=== PATIENT | female | born 1935 | race Caucasian/White ===

== ENCOUNTER 2020-06-20 17:53 | Inpatient (IN) | payer OTHER ==
[~2020-06-20] VITALS: Ht 162.6 cm; Wt 86.7 kg
--- NOTE | 2020-06-20 18:08 | NUR ---
O2 SAT 79-80%RA. O2 APPLIED. 4LNC; SAT INCREASED TO 94%. PT WAS GIVEN NTG 0.4MG SL X2 PER EMS; SEMI-DISSOLVED WHITE TABLET NOTED ON PT'S TONGUE. PT AWAKE, ALERT, ORIENTED TO NAME ONLY. RESP EVEN & UNLABORED, SPEECH GARBLED, SKIN WNL.
--- NOTE | 2020-06-20 19:04 | NUR ---
PT'S DAUGHTER AND GRANDDAUGHTER AT ED. PT'S MED HX AND ALLERGY STATUS CONFIRMED. PER DAUGHTER: NO ALLERGIES. [place] DOCUMENT LISTS NKDA AND ALLERGIES SOME LISTED MEDS. GRANDDAUGHTER ([employer] EMPL[employer]EE): YOLANDA PARRA ( 03/11/88) CELL [phone]. DAUGHTER: YONAS PARRA ( 05/12/65) CELL [phone]
[2020-06-20] MEDS ORDERED: DOXYCYCLINE 100MG TABLET PO ONE (19:30)
[2020-06-20] MEDS ORDERED: CEFTRIAXONE PMX 1GM/50ML 50 ML IVPB ONE (19:30)
[2020-06-20] MEDS ORDERED: DEXAMETHASONE 4 MG/ML, 1ML IVPush ONE (19:30)
[2020-06-20] MEDS ORDERED: DEXAMETHASONE 4 MG/ML, 1ML ONE (19:35)
[2020-06-20] MEDS ORDERED: CEFTRIAXONE PMX 1GM/50ML 50 ML ONE (19:35)
[2020-06-20] MEDS ORDERED: DOXYCYCLINE 100MG TABLET ONE (19:35)
[2020-06-20 19:46] LABS: ALBUMIN 2.1 g/dL (3.4-5.0); ANION GAP 5 mmol/L (5-15); CALCIUM 7.5 mg/dL (8.5-10.1); CHLORIDE 113 mmol/L (98-107)
[2020-06-20 19:53] LABS: ALANINE AMINOTRANSFERASE 18 U/L (12-78); ALKALINE PHOSPHATASE 83 U/L (45-117); BILIRUBIN,TOTAL 0.6 mg/dL (0.2-1.0); CREATININE 1.48 mg/dL (0.55-1.02); TOTAL PROTEIN 5.5 g/dL (6.4-8.2); TROPONIN I 0.826 ng/mL (0.000-0.045)
[2020-06-20] MEDS ORDERED: ALBUTEROL/IPRATROPIUM 2.5MG/0.5MG, 3 ML NPPB ONE (20:00)
--- NOTE | 2020-06-20 20:03 | NUR ---
PT REFUSING TO TAKE DOXYCYCLINE TAB; REPEATEDLY SPIT TAB OUT. WILL NOTIFY ERP. DECADRON GIVEN PER EMAR. ROCEPHIN ARGELIA, INFUSING AT 100ML/HR VIA PUMP; IV SITE PATENT. PT DROWSY. MONITORING CONTINUING. SIDE RAILS UP X2, CALL LIGHT W/IN REACH, GRANDDAUGHTER AT BS.
--- NOTE | 2020-06-20 20:05 | NUR ---
BREANN HELD FOR D CX DRAW.
--- NOTE | 2020-06-20 20:25 | NUR ---
ERNESTINE GASPAR DRAWN
[2020-06-20] MEDS ORDERED: ALBUTEROL/IPRATROPIUM 2.5MG/0.5MG, 3 ML ONE (20:33)
[2020-06-20 20:36] LABS: BASOPHILS # (AUTO) 0.01 x10^3/uL (0-0.1); BASOPHILS % (AUTO) 0 % (0-1); EOSINOPHILS # (AUTO) 0.01 x10^3/uL (0-0.4); EOSINOPHILS % (AUTO) 0 % (1-7); LYMPHOCYTES % (AUTO) 15 % (22-44); MD NO; MEAN CORPUSCULAR HEMOGLOBIN 30.2 pg (27.0-34.8); MEAN CORPUSCULAR HGB CONC 33.5 g/dL (32.4-35.8); MEAN CORPUSCULAR VOLUME 90.1 fL (80-100); MEAN PLATELET VOLUME 8.9 fL (7.4-10.4); MONOCYTES # (AUTO) 0.35 x10^3/uL (0.2-0.8); MONOCYTES % (AUTO) 10 % (2-9); NEUTROPHILS # (AUTO) 2.54 x10^3/uL (1.8-6.8); NEUTROPHILS % (AUTO) 74 % (42-75); PLATELET COUNT 213 x10^3/uL (130-400); RED BLOOD COUNT 3.23 x10^6/uL (3.82-5.3); RED CELL DISTRIBUTION WIDTH 16.4 % (9.6-15.2)
[2020-06-20] MEDS ORDERED: POLY17PO5 PO (20:49)
[2020-06-20] MEDS ORDERED: ASPI-496 PO (20:49)
[2020-06-20] MEDS ORDERED: NYST1000 PO (20:49)
[2020-06-20] MEDS ORDERED: PROBIOTIC PO (20:49)
[2020-06-20] MEDS ORDERED: BETADINE (20:49)
[2020-06-20] MEDS ORDERED: SENN-31 PO (20:49)
[2020-06-20] MEDS ORDERED: OMEP40CA42 PO (20:49)
[2020-06-20] MEDS ORDERED: ASCO500T7 PO (20:49)
[2020-06-20] MEDS ORDERED: FERR325T18 PO (20:49)
[2020-06-20] MEDS ORDERED: LISI-167 PO (20:49)
[2020-06-20] MEDS ORDERED: METO25TA35 PO (20:49)
[2020-06-20] MEDS ORDERED: MELA3TAB31 PO (20:49)
[2020-06-20] MEDS ORDERED: FURO40TA6 PO (20:49)
[2020-06-20] MEDS ORDERED: POTA10CA PO (20:49)
[2020-06-20] MEDS ORDERED: HYDR-3342 PO (20:49)
[2020-06-20] MEDS ORDERED: ATOR40TA78 PO (20:49)
[2020-06-20] MEDS ORDERED: TRAZ50TA66 PO (20:50)
--- NOTE | 2020-06-20 20:53 | NUR ---
ROCEPHIN RESTARTED VIA PUMP.
[2020-06-20 21:08] LABS: D-DIMER (DIC) 3.68 ug/mlFEU (0.00-0.52); PROTIME 11.4 Seconds (9.6-11.5)
--- NOTE | 2020-06-20 21:28 | NUR ---
PT REPORT TO TENISHA DUARTE FOR ROOM [id number]. WILL ATTEMPT TO GIVE [facility]O NEB WITH PT PRIOR TO TRANSPORT.
[2020-06-20] MEDS ORDERED: BISACODYL 10 MG SUPP PR PRN (21:30)
[2020-06-20] MEDS ORDERED: OXYcodone IR 5MG TABLET PO PRN (21:30)
[2020-06-20] MEDS ORDERED: LABETALOL 5MG/ML, 20ML IVPush PRN (21:30)
[2020-06-20] MEDS ORDERED: POTASSIUM CHLORIDE 40 MEQ in SODIUM CHLORIDE 0.9% 500 ML IV ONE (21:30)
[2020-06-20] MEDS ORDERED: DOCUSATE 100 MG CAPSULE PO PRN (21:30)
[2020-06-20] MEDS ORDERED: morphine SULFATE 10 MG/ML, 1ML IVPush PRN (21:30)
[2020-06-20] MEDS ORDERED: FUROSEMIDE 40 MG/4 ML IV ONE (21:30)
[2020-06-20] MEDS ORDERED: ONDANSETRON ODT 4 MG PO PRN (21:30)
[2020-06-20] MEDS ORDERED: POLYETHYLENE GLYCOL 17 GM PACKET PO PRN (21:30)
[2020-06-20] MEDS ORDERED: ONDANSETRON 2MG/ML, 2ML IVPush PRN (21:30)
[2020-06-20] MEDS ORDERED: PROMETHAZINE 25 MG/ML, 1ML IM PRN (21:30)
[2020-06-20] MEDS ORDERED: ACETAMINOPHEN 325 MG TABLET PO PRN (21:30)
--- NOTE | 2020-06-20 21:41 | NUR ---
PT TRYING TO SLEEP, REPEATEDLY PULLING SHEET OVER HER HEAD. DUO NEB PROVIDED VIA BLOW-BY
[2020-06-20 22:30] VITALS: BP 159/75
[2020-06-20] MEDS: PIPERACILLIN/TAZO/PMX 3.375GM 50 ML IV SCH (23:05)
[2020-06-20] MEDS: HEPARIN 5,000 UNITS/ML, 1ML SQ SCH (23:05)
[2020-06-21] VITALS (8 sets, daily range): BP systolic 139–200; BP diastolic 64–107
[2020-06-21] MEDS: AZITHROMYCIN 500 MG in SODIUM CHLORIDE 0.9% 250 ML IV SCH (00:15)
[2020-06-21 01:46] LABS: TROPONIN I 0.896 ng/mL (0.000-0.045)
[2020-06-21] MEDS: PIPERACILLIN/TAZO/PMX 3.375GM 50 ML IV SCH ×4 (04:26→23:59)
[2020-06-21] MEDS: HEPARIN 5,000 UNITS/ML, 1ML SQ SCH (05:38)
[2020-06-21 06:00] LABS: BASOPHILS % (AUTO) 0 % (0-1); EOSINOPHILS % (AUTO) 0 % (1-7); LYMPHOCYTES # (AUTO) 0.25 x10^3/uL (1-3.4); LYMPHOCYTES % (AUTO) 8 % (22-44); MD NO; MEAN CORPUSCULAR HEMOGLOBIN 30.4 pg (27.0-34.8); MEAN CORPUSCULAR HGB CONC 33.2 g/dL (32.4-35.8); MEAN CORPUSCULAR VOLUME 91.5 fL (80-100); MEAN PLATELET VOLUME 8.7 fL (7.4-10.4); MONOCYTES # (AUTO) 0.19 x10^3/uL (0.2-0.8); MONOCYTES % (AUTO) 6 % (2-9); NEUTROPHILS # (AUTO) 2.86 x10^3/uL (1.8-6.8); NEUTROPHILS % (AUTO) 87 % (42-75); PLATELET COUNT 214 x10^3/uL (130-400); RED BLOOD COUNT 3.47 x10^6/uL (3.82-5.3)
[2020-06-21] MEDS ORDERED: OMEPRAZOLE 20 MG CAPSULE.DR PO SCH (06:00)
[2020-06-21 06:11] LABS: ALBUMIN 2.2 g/dL (3.4-5.0); ANION GAP 8 mmol/L (5-15); CALCIUM 7.8 mg/dL (8.5-10.1); CHLORIDE 114 mmol/L (98-107)
[2020-06-21 06:14] LABS: ALANINE AMINOTRANSFERASE 16 U/L (12-78); CHOLESTEROL, TOTAL 65 mg/dL (140-239); CREATININE 1.45 mg/dL (0.55-1.02); TRIGLYCERIDES 68 mg/dL (50-200); TROPONIN I 0.881 ng/mL (0.000-0.045); VLDL CHOLESTEROL 14 mg/dL (0-25)
[2020-06-21 06:20] LABS: ALKALINE PHOSPHATASE 88 U/L (45-117); BILIRUBIN,TOTAL 0.5 mg/dL (0.2-1.0); CHOL/HDL RATIO 2.5; HDL CHOL % 40 % (28-40); HDL CHOLESTEROL (DIRECT) 26 mg/dL (40-60); LDL CHOLESTEROL,CALCULATED 25 mg/dL (54-169); TOTAL PROTEIN 5.5 g/dL (6.4-8.2)
[2020-06-21] MEDS: POLYETHYLENE GLYCOL 17 GM PACKET PO SCH (07:58)
[2020-06-21] MEDS: ASPIRIN 81 MG TABLET EC PO SCH (08:51)
[2020-06-21] MEDS: FERROUS SULFATE 325 MG TABLET PO SCH (08:51)
[2020-06-21] MEDS: SENNA/DOCUSATE TABLET PO SCH ×2 (08:52→20:12)
[2020-06-21] MEDS: ASCORBATE SODIUM 3,000 MG in SODIUM CHLORIDE 0.9% 250 ML IVPB SCH ×3 (08:52→20:12)
[2020-06-21] MEDS: ZINC SULFATE 220 MG CAPSULE PO SCH (08:58)
[2020-06-21] MEDS: ENOXAPARIN 80 MG/0.8 ML SQ SCH ×2 (08:58→20:12)
[2020-06-21] MEDS: LISINOPRIL 10 MG TABLET PO SCH (08:58)
[2020-06-21] MEDS: CHOLECALCIFEROL 5,000u TAB PO SCH (08:58)
[2020-06-21] MEDS ORDERED: ASCORBIC ACID 500 MG TABLET PO SCH (09:00)
[2020-06-21] MEDS ORDERED: FUROSEMIDE 20 MG/2 ML IV SCH (09:00)
[2020-06-21] MEDS ORDERED: METOPROLOL TARTRATE 25 MG TAB PO SCH (09:00)
[2020-06-21 09:48] LABS: C-REACTIVE PROTEIN, QUANT 7.1 mg/dL (0.02-0.49)
[2020-06-21] MEDS: hydrALAzine 20 MG/ML, 1ML IVPush PRN (12:55)
[2020-06-21] MEDS: ATORVASTATIN 40 MG TABLET PO SCH (20:12)
[2020-06-21] MEDS: MELATONIN 3 MG TABLET PO SCH (20:13)
[2020-06-21] MEDS ORDERED: MELATONIN 3 MG TABLET PO SCH (21:00)
[2020-06-22] VITALS (8 sets, daily range): BP systolic 116–188; BP diastolic 69–130
[2020-06-22] MEDS: AZITHROMYCIN 500 MG in SODIUM CHLORIDE 0.9% 250 ML IV SCH (00:37)
[2020-06-22] MEDS: ASCORBATE SODIUM 3,000 MG in SODIUM CHLORIDE 0.9% 250 ML IVPB SCH ×4 (02:10→20:52)
[2020-06-22] MEDS: hydrALAzine 20 MG/ML, 1ML IVPush PRN (02:44)
[2020-06-22] MEDS: PIPERACILLIN/TAZO/PMX 3.375GM 50 ML IV SCH ×4 (04:27→20:40)
[2020-06-22] MEDS: POLYETHYLENE GLYCOL 17 GM PACKET PO SCH (08:46)
[2020-06-22] MEDS: ENOXAPARIN 80 MG/0.8 ML SQ SCH ×2 (08:46→20:40)
[2020-06-22] MEDS: LISINOPRIL 10 MG TABLET PO SCH (08:46)
[2020-06-22] MEDS: ASPIRIN 81 MG TABLET EC PO SCH (08:47)
[2020-06-22] MEDS: SENNA/DOCUSATE TABLET PO SCH ×2 (09:00→20:41)
[2020-06-22] MEDS: FERROUS SULFATE 325 MG TABLET PO SCH (12:35)
[2020-06-22] MEDS: ZINC SULFATE 220 MG CAPSULE PO SCH (12:36)
[2020-06-22] MEDS: CHOLECALCIFEROL 5,000u TAB PO SCH (12:36)
[2020-06-22] MEDS ORDERED: DILTIAZEM 5 MG/ML, 5ML IVPush ONE (17:00)
[2020-06-22] MEDS ORDERED: DILTIAZEM 5 MG/ML, 5ML IVPush PRN (18:00)
[2020-06-22] MEDS: ATORVASTATIN 40 MG TABLET PO SCH (20:41)
[2020-06-22] MEDS: MELATONIN 3 MG TABLET PO SCH (20:41)
[2020-06-23] MEDS: AZITHROMYCIN 500 MG in SODIUM CHLORIDE 0.9% 250 ML IV SCH
[2020-06-23 00:51] VITALS: BP 152/80
[2020-06-23] MEDS: ASCORBATE SODIUM 3,000 MG in SODIUM CHLORIDE 0.9% 250 ML IVPB SCH (02:08)
== END 2020-06-23 04:30 | disposition expired | DRG 177 ==
LOC: ED 19:56 → EDIP 21:01 → 4EST 22:25
PROVIDERS: ADMIT Internal Medicine; ATTEND Internal Medicine
DX: U07.1 COVID-19 (principal); J96.01 Acute respiratory failure with hypoxia; I21.4 Non-ST elevation (NSTEMI) myocardial infarction; G93.41 Metabolic encephalopathy; I63.9 Cerebral infarction, unspecified; J12.89 Other viral pneumonia; I13.0 Hypertensive heart and chronic kidney disease with heart failure and stage 1 through stage 4 chronic kidney disease, or unspecified chronic kidney disease; D64.9 Anemia, unspecified; E78.5 Hyperlipidemia, unspecified; E87.6 Hypokalemia; F02.80 Dementia in other diseases classified elsewhere, unspecified severity, without behavioral disturbance, psychotic disturbance, mood disturbance, and anxiety; G30.9 Alzheimer's disease, unspecified; I48.91 Unspecified atrial fibrillation; I46.9 Cardiac arrest, cause unspecified; I49.3 Ventricular premature depolarization; I50.9 Heart failure, unspecified; N18.2 Chronic kidney disease, stage 2 (mild); Z51.5 Encounter for palliative care; Z66 Do not resuscitate; I69.320 Aphasia following cerebral infarction; Z79.82 Long term (current) use of aspirin; Z87.891 Personal history of nicotine dependence; Z79.899 Other long term (current) drug therapy; Z79.891 Long term (current) use of opiate analgesic
CPT/HCPCS: 36415; 71045; 80053; 80061; 82728; 83036; 83605; 83615; 83735; 83880; 84145; 84443; 84484; 85025; 85049; 85379; 85384; 85610; 85730; 86140; 87040; 87635; 93005; 96365; 96375; 99291; G0378; J0456; J0696; J1100; J1644; J1650; J1940; J2543; J0360; J7050